=== PATIENT | female | born 1995 | race Two or more races ===

== ENCOUNTER 2023-01-12 19:25 | Inpatient (IN) | payer OTHER ==
[~2023-01-12] VITALS: Ht 160 cm; Wt 84.0 kg
[2023-01-12] MEDS ORDERED: MECL-159 PO (19:38)
--- NOTE | 2023-01-12 19:40 | NUR ---
Dr Santos at bedside, MSE in progress
[2023-01-12 20:00] LABS: HEMATOCRIT 36.2 % (31.2-41.9); MEAN CORPUSCULAR HEMOGLOBIN 31.2 uug (24.7-32.8); MEAN CORPUSCULAR VOLUME 92.1 fL (75.5-95.3); PLATELET COUNT (AUTO) 263 K/uL (179-408)
[2023-01-12 20:14] LABS: CARBON DIOXIDE 26 mmol/L (21-32); CHLORIDE 103 mmol/L (98-107); CREATININE 0.8 mg/dL (0.6-1.3); GLUCOSE 97 mg/dL (74-106); POTASSIUM 3.7 mmol/L (3.5-5.1); UREA NITROGEN, BLOOD 14 mg/dL (7-18)
[2023-01-12 20:16] LABS: *URINE HCG, QUAL NEGATIVE (NEGATIVE)
--- NOTE | 2023-01-12 22:27 | NUR ---
called 3rd floor for TELE bed, awaiting for bed assignment.
--- NOTE | 2023-01-12 22:29 | NUR ---
Patient assigned to room 302
--- NOTE | 2023-01-12 22:57 | NUR ---
Patient has been accepted by Dr Esquivel
[2023-01-12 23:05] VITALS: BP 105/62
--- NOTE | 2023-01-12 23:10 | NUR ---
Admitted a 27 years old female with Dx of Syncope. patient AAOx4. In no acute distress. Complain of neck pain from the fall. Will provide pain medication once ordered. Denies any SOB, dizziness N/V. IV site on left FA intact and patent. NSR on tele with HR of 61/min. Routine admission care done. Plan of care initiated. Safety measure initiated and call light within reached.
--- NOTE | 2023-01-12 23:11 | NUR ---
Pt. admitted to TELE room 302 , under care of Dr. Esquivel Belongs List completed Kindra RN aware of patient's arrival
[2023-01-12] MEDS ORDERED: ONDANSETRON 4 MG/2 ML VIAL IV PRN (23:30)
[2023-01-13] MEDS: ACETAMINOPHEN 325 MG TABLET PO PRN ×2 (00:05→08:09)
[2023-01-13 04:00] VITALS: BP 101/58
--- NOTE | 2023-01-13 05:46 | NUR ---
Patient slept well after admission. No syncopal episode noted. Sinus ayala on tele with HR of 52/min. Needs attended to and met. Safety measure maintained and call light within reached.
[2023-01-13 06:35] LABS: HEMATOCRIT 35.2 % (31.2-41.9); MEAN CORPUSCULAR VOLUME 92.4 fL (75.5-95.3); PLATELET COUNT (AUTO) 250 K/uL (179-408)
[2023-01-13] MEDS ORDERED: PANTOPRAZOLE SODIUM 40 MG TABLET.DR PO SCH (07:00)
[2023-01-13 07:05] LABS: THYROID STIMULATING HORMONE 1.864 mIU/mL (0.358-3.740)
[2023-01-13 07:21] LABS: ALANINE AMINOTRANSFERASE 18 U/L (14-59); ALKALINE PHOSPHATASE 48 U/L (50-136); ASPARTATE AMINOTRANSFERASE 17 U/L (15-37); BILIRUBIN,TOTAL 0.2 mg/dL (0.2-1.0); CARBON DIOXIDE 25 mmol/L (21-32); CHLORIDE 105 mmol/L (98-107); CREATININE 0.7 mg/dL (0.6-1.3); GLUCOSE 91 mg/dL (74-106); PHOSPHOROUS 4.3 mg/dL (2.5-4.9); POTASSIUM 3.6 mmol/L (3.5-5.1); TOTAL PROTEIN, SERUM 7.8 g/dL (6.4-8.2); UREA NITROGEN, BLOOD 14 mg/dL (7-18)
[2023-01-13 07:52] LABS: CHOLESTEROL 168 mg/dL (<200); HDL CHOLESTEROL 49 mg/dL (40-60); TRIGLYCERIDES 67 MG/DL (30-150)
--- NOTE | 2023-01-13 08:00 | NUR ---
RECEIVED PATIENT AWAKE ALERT AND ORIENTED X3 C/O NECK AIN RIGHT SIDE 03/18, DENIES DIZZINESS, N/V. SR ON MONITOR
[2023-01-13] MEDS ORDERED: ASPIRIN 81 MG TAB.CHEW PO SCH (09:00)
[2023-01-13] MEDS ORDERED: CETI-90 PO (10:55)
[2023-01-13 11:25] VITALS: BP 106/64
--- NOTE | 2023-01-13 11:30 | NUR ---
SEEN BY HOSPITALIST WITH PLAN TO DISCHARGE TODAY
--- NOTE | 2023-01-13 13:15 | NUR ---
DISCHARGED HOME STABLE ACCOMPANIED BY FAMILY WITH MEDICATION AND FOLLOW-UP INSTRUCTION.
== END 2023-01-13 13:15 | disposition home or self-care (01) | DRG 48 ==
LOC: ER 19:25 → TELE3 23:02
PROVIDERS: ADMIT Internal Medicine; ATTEND Nurse Practitioner Acute Care
DX: G90.8 Other disorders of autonomic nervous system (principal); E66.9 Obesity, unspecified; H81.03 Meniere's disease, bilateral; Z82.49 Family history of ischemic heart disease and other diseases of the circulatory system; Z86.69 Personal history of other diseases of the nervous system and sense organs; J45.909 Unspecified asthma, uncomplicated; Z68.32 Body mass index [BMI] 32.0-32.9, adult
CPT/HCPCS: 36415; 70450; 71045; 72125; 83735; 84100; 84443; 84484; 84703; 85025; 85730; 93005; A4663; G0378

== ENCOUNTER 2023-09-24 19:59 | Emergency (ER) | payer OTHER ==
[~2023-09-24] VITALS: Ht 160 cm; Wt 79.8 kg
[~2023-09-24 19:59] MED LIST: CETI-90 PO; MECL-159 PO
[2023-09-24] MEDS: IPRATROPIUM BROMIDE 0.5 MG/2.5 ML NEBU NEB ONE (21:19)
[2023-09-24] MEDS: ALBUTEROL SULFATE 2.5 MG/ 0.5 ML NEBU NEB ONE (21:19)
[2023-09-24] MEDS ORDERED: IPRATROPIUM BROMIDE 0.5 MG/2.5 ML NEBU ONE (21:21)
[2023-09-24] MEDS ORDERED: ALBUTEROL SULFATE 2.5 MG/ 0.5 ML NEBU ONE (21:21)
[2023-09-24 21:25] VITALS: O2SAT 98
[2023-09-24 21:40] VITALS: O2SAT 98
[2023-09-24] MEDS ORDERED: ALBU18HF2 INH (22:43)
[2023-09-24] MEDS ORDERED: METH4TAB3 PO (22:43)
[2023-09-24] MEDS ORDERED: predniSONE 20 MG TABLET ONE (22:49)
[2023-09-24] MEDS: predniSONE 20 MG TABLET PO ONE (22:50)
[2023-09-24 22:56] VITALS: BP 113/70; O2SAT 98
== END 2023-09-24 22:56 | disposition home or self-care (01) ==
LOC: ER 20:00
DX: J45.909 Unspecified asthma, uncomplicated (principal); R06.02 Shortness of breath; R05.9 Cough, unspecified; Z79.899 Other long term (current) drug therapy
CPT/HCPCS: 99283; 71045; 94640; J7512; A4606; A4663; J3590